=== PATIENT | male | born 1940 | race Caucasian/White ===

== ENCOUNTER 2018-04-16 11:08 | Emergency (ER) | payer MEDICARE, OTHER ==
--- NOTE | 2018-04-16 12:47 | ER Document Report ---
HPI - HPI Patient complains to provider of: hearing aid part stuck in ear Time Seen by Provider: 04/16/18 12:31 Pain Level: 1 Context: Very pleasant 77-year-old male presents to the emergency department after a part of his hearing aid got stuck in his ear. He was assembling it and when he placed it it became disassembled and he was unable to retrieve part of it. He is complaining of pressure in his left ear without pain. He is complaining of hearing loss but that is baseline without his hearing aids. He has no other complaints. - EENT EENT: REPORTS: Ear Pain - Left. DENIES: Sore Throat, Eye problems - NEURO Neurology: DENIES: Headache, Weakness, Vision blurred, Dizzinesss / Vertigo - CARDIOVASCULAR Cardiovascular: DENIES: Chest pain - RESPIRATORY Respiratory: DENIES: Trouble Breathing, Coughing - GASTROINTESTINAL Gastrointestinal: DENIES: Abdominal Pain, Black / Bloody Stools - URINARY Urinary: DENIES: Dysuria, Urgency, Frequency - MUSCULOSKELETAL Musculoskeletal: DENIES: Extremity pain Past Medical History - Social History Smoking Status: Former Smoker Chew tobacco use (# tins/day): No Frequency of alcohol use: None Drug Abuse: None Family History: Reviewed & Not Pertinent Patient has suicidal ideation: No Patient has homicidal ideation: No - Past Medical History Cardiac Medical History: Reports: Hx Atrial Fibrillation, Hx Coronary Artery Disease, Hx Heart Attack Denies: Hx Hypertension Pulmonary Medical History: Denies: Hx Asthma, Hx Bronchitis, Hx COPD, Hx Pneumonia Neurological Medical History: Denies: Hx Cerebrovascular Accident, Hx Seizures Renal/ Medical History: Denies: Hx Peritoneal Dialysis Musculoskeletal Medical History: Denies Hx Arthritis Psychiatric Medical History: Denies: Hx Depression Past Surgical History: Reports: Hx Cardiac Catheterization, Hx Cardiac Surgery - 2 STENTS - Immunizations Hx Diphtheria, Pertussis, Tetanus Vaccination: Yes Hx Pneumococcal Vaccination: 11/26/12 Vertical Provider Document - CONSTITUTIONAL Notes: PHYSICAL EXAMINATION: Reviewed vital signs and charting by RN GENERAL: Alert, interacts well. No acute distress. HEAD: Normocephalic, atraumatic. EYES: Pupils equal, round. Extraocular movements intact. ENT: Oral mucosa moist, metallic foreign body seen in left ear. NECK: Full range of motion. Supple. Trachea midline. EXTREMITIES: Moves all 4 extremities spontaneously. No edema, No cyanosis. BACK: no cervical, thoracic, lumbar midline tenderness. No saddle anesthesia, normal distal neurovascular exam. NEUROLOGICAL: Alert and oriented x3. Normal speech. PSYCH: Normal affect, normal mood. SKIN: Warm, dry, normal turgor. No rashes or lesions noted. - INFECTION CONTROL TRAVEL OUTSIDE OF THE [place] IN LAST 30 DAYS: No Course - Re-evaluation Re-evalutation: 04/16/18 12:47 Very pleasant 77-year-old male presents for part of his hearing aid stuck in his left ear. Visualized with otoscope and metallic foreign body seen. Removed with forceps without any issue. Reexamination showed intact TM, pearly doss, no evidence of any damage. - Vital Signs Vital signs: Temp Pulse Resp BP Pulse Ox 98.1 F 77 141/75 H 96 04/16/18 11:43 04/16/18 11:43 04/16/18 11:43 04/16/18 11:43 Discharge - Discharge Clinical Impression: Foreign body of ear, left Qualifiers: Encounter type: initial encounter Qualified Code(s): T16.2XXA - Foreign body in left ear, initial encounter Condition: Good Disposition: HOME, SELF-CARE Additional Instructions: You were seen in the emergency department this afternoon for part of your hearing aid being stuck in your ear. It came out very easily with a pair of tweezers and after reinspecting her ear her eardrum was intact and looked good. There is nothing left in the ear. Please follow-up with your primary care doctor at the [place] for maintenance of your hearing aids. If you develop any unusual ear pain, have a dull roaring sound in your ear, or you have any other complaints including dizziness or vertigo please return to the emergency department to see her primary care doctor as this could be due to ear damage. If you have any other concerns please immediately return to the emergency department.
[2018-04-16 13:02] VITALS: BP 141/72
== END 2018-04-16 13:02 | disposition home or self-care (01) ==
LOC: ER 11:08
DX: T16.2XXA Foreign body in left ear, initial encounter (principal); X58.XXXA Exposure to other specified factors, initial encounter; I48.91 Unspecified atrial fibrillation; I25.10 Atherosclerotic heart disease of native coronary artery without angina pectoris; I25.2 Old myocardial infarction
CPT/HCPCS: 99282

== ENCOUNTER 2018-06-15 14:20 | Emergency (ER) | payer MEDICARE, OTHER ==
--- NOTE | 2018-06-15 15:09 | ER Document Report ---
ED Medical Screen (RME) - General Chief Complaint: Laceration Stated Complaint: LEFT HAND INJURY Time Seen by Provider: 06/15/18 14:59 Mode of Arrival: Ambulatory Information source: Patient Notes: 77-year-old male presented to ED with laceration to the left second and third finger. He states he cut them on a piece of metal. They are open and actively bleeding. He is on Xarelto blood thinner for history of coronary stents. He also has a history of TBI coronary artery disease blood pressure cholesterol fractures to hand arm shoulder. He has had his TBI surgery. He is a former smoker lives with his and drinks 3-4 beers daily. Patient is alert oriented respirations regular and unlabored speaking in full sentences. I have greeted and performed a rapid initial assessment of this patient. A comprehensive ED assessment and evaluation of the patient, analysis of test results and completion of medical decision making process will be conducted by an additional ED providers. TRAVEL OUTSIDE OF THE [place] IN LAST 30 DAYS: No - Related Data Allergies/Adverse Reactions: No Known Allergies Allergy (Verified 06/15/18 14:34) Past Medical History - Social History Chew tobacco use (# tins/day): No Frequency of alcohol use: Heavy Drug Abuse: Prescription drugs - Past Medical History Cardiac Medical History: Reports: Hx Atrial Fibrillation, Hx Coronary Artery Disease, Hx Heart Attack Denies: Hx Hypertension Pulmonary Medical History: Denies: Hx Asthma, Hx Bronchitis, Hx COPD, Hx Pneumonia Neurological Medical History: Denies: Hx Cerebrovascular Accident, Hx Seizures Renal/ Medical History: Denies: Hx Peritoneal Dialysis Musculoskeltal Medical History: Denies Hx Arthritis Psychiatric Medical History: Denies: Hx Depression Past Surgical History: Reports: Hx Cardiac Catheterization, Hx Cardiac Surgery - 2 STENTS, Hx Cholecystectomy - Immunizations Hx Diphtheria, Pertussis, Tetanus Vaccination: Yes Physical Exam - Vital signs Vitals: Temp Pulse Resp BP Pulse Ox 97.6 F 98 18 151/91 H 97 06/15/18 14:41 06/15/18 14:41 06/15/18 14:41 06/15/18 14:41 06/15/18 14:41 Course - Vital Signs Vital signs: Temp Pulse Resp BP Pulse Ox 97.6 F 98 18 151/91 H 97 06/15/18 14:41 06/15/18 14:41 06/15/18 14:41 06/15/18 14:41 06/15/18 14:41
[2018-06-15] MEDS ORDERED: LIDOCAINE 1% INJ-PF (10 MG/ML) 30 ML SDV INJ ONE (15:58)
--- NOTE | 2018-06-15 18:27 | ER Document Report ---
ED Wound - General Chief Complaint: Laceration Stated Complaint: LEFT HAND INJURY Time Seen by Provider: 06/15/18 14:59 Mode of Arrival: Ambulatory Notes: 77-year-old male presented to ED with laceration to the left second and third finger. He states he cut them on a piece of metal. They are open and actively bleeding. He is on Xarelto blood thinner for history of coronary stents. He also has a history of TBI coronary artery disease blood pressure cholesterol fractures to hand arm shoulder. He has had his TBI surgery. He is a former smoker lives with his and drinks 3-4 beers daily. Patient is alert o riented respirations regular and unlabored speaking in full sentences. Denies fever, chills, shortness of breath or chest pain, nausea, vomiting, diarrhea, abdominal pain. Tetanus shot is up-to-date last in November 2017. TRAVEL OUTSIDE OF THE [place] IN LAST 30 DAYS: No - Related Data Allergies/Adverse Reactions: No Known Allergies Allergy (Verified 06/15/18 14:34) Past Medical History - General Information source: Patient - Social History Smoking Status: Former Smoker Chew tobacco use (# tins/day): No Frequency of alcohol use: Heavy Drug Abuse: Prescription drugs Family History: Reviewed & Not Pertinent Patient has suicidal ideation: No Patient has homicidal ideation: No - Past Medical History Cardiac Medical History: Reports: Hx Atrial Fibrillation, Hx Coronary Artery Disease, Hx Heart Attack Denies: Hx Hypertension Pulmonary Medical History: Denies: Hx Asthma, Hx Bronchitis, Hx COPD, Hx Pneumonia Neurological Medical History: Denies: Hx Cerebrovascular Accident, Hx Seizures Renal/ Medical History: Denies: Hx Peritoneal Dialysis Musculoskeletal Medical History: Denies Hx Arthritis Psychiatric Medical History: Denies: Hx Depression Past Surgical History: Reports: Hx Cardiac Catheterization, Hx Cardiac Surgery - 2 STENTS, Hx Cholecystectomy - Immunizations Hx Diphtheria, Pertussis, Tetanus Vaccination: Yes Hx Pneumococcal Vaccination: 11/26/12 Review of Systems - Review of Systems Constitutional: See HPI EENT: No symptoms reported Cardiovascular: See HPI Respiratory: See HPI Gastrointestinal: See HPI Genitourinary: No symptoms reported Male Genitourinary: No symptoms reported Musculoskeletal: No symptoms reported Skin: See HPI Hematologic/Lymphatic: No symptoms reported Neurological/Psychological: No symptoms reported Physical Exam - Vital signs Vitals: Temp Pulse Resp BP Pulse Ox 97.6 F 98 18 151/91 H 97 06/15/18 14:41 06/15/18 14:41 06/15/18 14:41 06/15/18 14:41 06/15/18 14:41 - Notes Notes: PHYSICAL EXAMINATION: Reviewed vital signs and charting by RN GENERAL: Alert, interacts well. No acute distress. HEAD: Normocephalic, atraumatic. EYES: Pupils equal and round. Extraocular movements intact. EXTREMITIES: Moves all 4 extremities spontaneously. No edema, No cyanosis. Normal distal neurovascular exam BACK: No CVAT NEUROLOGIC: Oriented and appropriate. Normal speech. PSYCH: Normal affect, normal mood. SKIN: Large laceration across second and third digits of left hand on palmar side at the DIP to the PIP approximately 8 cm long, actively bleeding, linear Course - Re-evaluation Re-evalutation: 06/15/18 18:33 Well-appearing, patient on Xarelto and is actively oozing. Flexor tendons and extensor tendons intact at PIP and DIP of second and third digits of left hand. Repair using digital block of second and third digits left hand. 20 4 sutures placed on approximately 8 cm long wound. I oversewed the wound because the patient bled throughout the entire procedure. Splint placed on fingers. Instructions given. Normal distal neurovascular exam post procedure. Patient tolerated procedure well stable for discharge. - Vital Signs Vital signs: Temp Pulse Resp BP Pulse Ox 97.6 F 98 18 151/91 H 97 06/15/18 14:41 06/15/18 14:41 06/15/18 14:41 06/15/18 14:41 06/15/18 14:41 Procedures - Laceration/Wound Repair Left Hand 2nd digit Wound length (cm): 8 Wound's Depth, Shape: Superficial Laceration pre-procedure: Sterile PPE donned Anesthetic type: 1% Lidocaine Wound explored: Clean Wound Debrided: Minimal Wound Repaired With: Sutures Suture Size/Type: 5:0, Ethilon Number of Sutures: 24 Layer Closure?: No Post-procedure wound care: Splint applied Post-procedure NV exam normal: Yes Complications: No Discharge - Discharge Clinical Impression: Laceration Condition: Good Disposition: HOME, SELF-CARE Instructions: Antibiotic Ointment Protection ([facility]), Laceration Care ([facility]), Soap Cleansing ([facility]) Additional Instructions: Please return to your primary doctor, the ED, or an urgent care in 7 days for suture removal. Return immediately if you develop spreading redness around the wound, pus from the wound, worsening pain, or a fever of >101. Keep the area clean and dry. Wash gently with soap and water twice daily and cover with antibiotic ointment.
[2018-06-15 19:15] VITALS: BP 148/88
--- NOTE | 2018-06-15 19:26 | RADIOLOGY REPORT (SQ) ---
EXAM DESCRIPTION: HAND LEFT 3 VIEWS COMPLETED DATE/TIME: 06/15/2018 7:08 pm REASON FOR STUDY: laceration COMPARISON: None. EXAM PARAMETERS: NUMBER OF VIEWS: Three views. TECHNIQUE: AP, lateral and oblique radiographic images acquired of the left hand. LIMITATIONS: None. FINDINGS: MINERALIZATION: Normal. BONES: No acute fracture or dislocation. No worrisome bone lesions. JOINTS: Scattered degenerative changes. SOFT TISSUES: Soft tissue laceration noted at the distal pole are aspect of 2nd digit. No radiopaque retained foreign bodies identified. OTHER: No other significant finding. IMPRESSION: Soft tissue laceration as described. No foreign bodies or bony involvement identified. TECHNICAL DOCUMENTATION: JOB ID: [id number] [employer]- All Rights Reserved Reading location - IP/workstation name: [email or web address]
== END 2018-06-15 19:15 | disposition home or self-care (01) ==
LOC: ER 14:20
DX: S61.211A Laceration without foreign body of left index finger without damage to nail, initial encounter (principal); S61.213A Laceration without foreign body of left middle finger without damage to nail, initial encounter; W45.8XXA Other foreign body or object entering through skin, initial encounter; F19.10 Other psychoactive substance abuse, uncomplicated; I25.10 Atherosclerotic heart disease of native coronary artery without angina pectoris; Z95.5 Presence of coronary angioplasty implant and graft; Z79.01 Long term (current) use of anticoagulants; Z87.891 Personal history of nicotine dependence
CPT/HCPCS: 99283